=== PATIENT | male | born 1995 | race African-American/Black ===

== ENCOUNTER 2017-02-08 20:28 | Emergency (ER) | payer OTHER ==
[~2017-02-08] VITALS: Ht 182.9 cm; Wt 104.3 kg
[~2017-02-08 20:28] MED LIST: NORCO 5-325 TA1 EACH PO; PROMETHAZINE-C120 ML PO; ZPAK PO
[2017-02-08 21:32] LABS: HEMATOCRIT 44.6 % (42.0-52.0); MCH 28.3 pg (26.0-34.0); MCHC 33.7 g/dL (28.0-37.0); MCV 84.2 fL (80.0-100.0); PLATELET COUNT 244 thou/uL (150-400); RDW 13.2 % (10.5-14.5); WBC 20.8 thou/uL (4.0-11.0)
[2017-02-08 21:32] LABS: URINE BILIRUBIN NEGATIVE (Negative); URINE BLOOD TRACE (Negative); URINE COLOR YELLOW; URINE GLUCOSE-RANDOM* NEGATIVE (Negative); URINE KETONES NEGATIVE (Negative); URINE NITRITE NEGATIVE (Negative); URINE PROTEIN (DIPSTICK) NEGATIVE (Negative); URINE UROBILINOGEN 0.2 E.U./dl (0.2-1.0)
[2017-02-08 21:36] LABS: MANUAL DIFF YES
[2017-02-08 21:45] LABS: CALCIUM 9.4 mg/dL (8.5-10.1); CREATININE 1.1 mg/dL (0.7-1.3); POTASSIUM 3.6 mmol/L (3.5-5.1)
[2017-02-08 21:49] LABS: ALBUMIN 4.3 g/dL (3.4-5.0); TOTAL BILIRUBIN 2.5 mg/dL (<0.1-1.0); TOTAL PROTEIN 8.3 g/dL (6.4-8.2)
[2017-02-08 21:54] LABS: ABSOLUTE NEUTROPHILS 16.8 thou/uL (1.4-8.2); TOTAL CELL COUNT 100
[2017-02-08 21:55] LABS: LARGE PLATELETS FEW; PLATELET ESTIMATE NORMAL
[2017-02-08] MEDS ORDERED: ONDANSETRON HCL4 M2 PO (22:21)
[2017-02-08 22:27] VITALS: BP 117/72
== END 2017-02-08 22:28 | disposition home or self-care (01) ==
LOC: ER 20:28
PROVIDERS: Physician Assistant
DX: R11.2 Nausea with vomiting, unspecified (principal); R19.7 Diarrhea, unspecified; J02.9 Acute pharyngitis, unspecified; R09.89 Other specified symptoms and signs involving the circulatory and respiratory systems; F17.210 Nicotine dependence, cigarettes, uncomplicated

== ENCOUNTER 2017-03-20 16:07 | Emergency (ER) | payer OTHER ==
[~2017-03-20] VITALS: Ht 177.8 cm; Wt 117.9 kg
[~2017-03-20 16:07] MED LIST changes: +ONDANSETRON HCL4 M2 PO
[2017-03-20 16:10] VITALS: BP 134/77
== END 2017-03-20 16:50 | disposition home or self-care (01) ==
LOC: ER 16:07
DX: L42 Pityriasis rosea (principal); F17.210 Nicotine dependence, cigarettes, uncomplicated

== ENCOUNTER 2017-06-22 18:22 | Emergency (ER) | payer OTHER ==
[~2017-06-22] VITALS: Ht 180.3 cm; Wt 117.9 kg
[2017-06-22 18:22] VITALS: BP 123/72
[2017-06-22] MEDS ORDERED: LOTRISONE CREAM15 GM TOP (19:04)
== END 2017-06-22 19:45 | disposition home or self-care (01) ==
LOC: ER 18:22
DX: L29.9 Pruritus, unspecified (principal); F17.210 Nicotine dependence, cigarettes, uncomplicated